=== PATIENT | female | born 1960 ===

== ENCOUNTER 2017-12-26 13:29 | Outpatient (CLI) | payer OTHER | END 2017-12-26 13:32 | disposition home or self-care (01) | LOC: SONOGRAMA 13:29 → MAMO-SONO 13:30 → SONOGRAMA 13:32 | DX: N64.89 Other specified disorders of breast (principal) ==

== ENCOUNTER 2018-02-04 22:21 | Emergency (ER) | payer OTHER ==
[~2018-02-04] VITALS: Ht 162.6 cm; Wt 70.3 kg
[2018-02-05] MEDS ORDERED: LEVAQUIN750 MG PO ×2 (06:19→06:20)
[2018-02-05] MEDS ORDERED: KETO10TA2 PO (06:20)
== END 2018-02-05 07:31 | disposition home or self-care (01) ==
LOC: ER 22:21
DX: N39.0 Urinary tract infection, site not specified (principal)

== ENCOUNTER 2018-09-13 13:35 | Outpatient (CLI) | payer OTHER ==
[~2018-09-13 13:35] MED LIST: KETO10TA2 PO; LEVAQUIN750 MG PO
== END 2018-09-13 13:57 | disposition home or self-care (01) ==
LOC: MAMO-SONO 13:35
DX: N64.4 Mastodynia (principal); N60.11 Diffuse cystic mastopathy of right breast; Z12.31 Encounter for screening mammogram for malignant neoplasm of breast; N63.10 Unspecified lump in the right breast, unspecified quadrant; N63.20 Unspecified lump in the left breast, unspecified quadrant